=== PATIENT | male | born 1990 | race Caucasian/White ===

== ENCOUNTER 2022-11-16 08:13 | Outpatient (CLI) | payer BC, SELFPAY ==
[2022-11-16 12:27] LABS: Chloride* 108 mmol/L (96-114)
[2022-11-16 12:28] LABS: Potassium* 4.2 mmol/L (3.6-5.1); Sodium* 140 mmol/L (135-149)
[2022-11-16 12:30] LABS: Aspartate Amino Transferase* 40 U/L (12-35); Bilirubin Total* 0.9 mg/dL (0.1-1.5); Blood Urea Nitrogen* 16 mg/dL (5-24); Carbon Dioxide* 24 mmol/L (20-32); Cholesterol* 283 mg/dL (90-199); Creatinine* 0.8 mg/dL (0.5-1.5); Estimated Glomerular Filt Rate 121 ml/min
[2022-11-16 12:31] LABS: Alanine Aminotransferase* 62 U/L (4-50); Alkaline Phosphatase* 50 U/L (40-150); Calcium* 9.5 mg/dL (8.4-10.6); Glucose* 100 mg/dL (60-115); HDL Cholesterol* 44 mg/dL (>=40); LDL Cholesterol Calculated 208 mg/dL (<100); Triglycerides* 157 mg/dL (40-149)
== END 2022-11-16 08:14 | disposition home or self-care (01) ==
PROVIDERS: PCP Family Medicine; Visit Provider Family Medicine
DX: Z00.00 Encounter for general adult medical examination without abnormal findings (principal); Z13.1 Encounter for screening for diabetes mellitus; Z13.6 Encounter for screening for cardiovascular disorders
CPT/HCPCS: 80053; 80061

== ENCOUNTER 2023-02-27 07:49 | Outpatient (CLI) | payer BC, SELFPAY | END 2023-02-27 07:50 | disposition home or self-care (01) | LOC: NFLDREF 02-28 02:34 | PROVIDERS: PCP Family Medicine; Referring Provider Family Medicine; Visit Provider Family Medicine | DX: E78.5 Hyperlipidemia, unspecified (principal); R74.01 Elevation of levels of liver transaminase levels | CPT/HCPCS: 80053; 80061 ==

== ENCOUNTER 2023-11-20 08:38 | Outpatient (CLI) | payer BC, SELFPAY | END 2023-11-20 08:39 | disposition home or self-care (01) | LOC: NFLDREF 11-24 07:19 | PROVIDERS: PCP Family Medicine; Referring Provider Family Medicine; Visit Provider Family Medicine | DX: E78.5 Hyperlipidemia, unspecified (principal); R74.01 Elevation of levels of liver transaminase levels | CPT/HCPCS: 80053; 80061 ==

== ENCOUNTER 2025-07-11 12:12 | Emergency (ER) | payer BC, SELFPAY ==
[2025-07-11 12:36] VITALS: BP 147/91; PULSE 83; RESP 18; TEMP 36.3; O2SAT 94; BMI 44.1
--- NOTE | 2025-07-11 12:58 | ED_ITS ---
HPI - General Adult General Chief complaint: Laceration/Wound Stated complaint: Right Thumb Laceration Time Seen by Provider: 07/11/25 12:27 History of Present Illness HPI narrative: Patient has laceration in right thumb. 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 34-year-old man presenting to the emergency department following a laceration sustained to his right thumb. 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 Has managed to control the bleeding. No loss of function or sensation noted. Related Data Home Medications ?Medication ?Instructions ?Recorded ?Confirmed No Known Home Medications 11/16/2203/30 Allergies Allergy/AdvReac Type Severity Reaction Status Date / Time No Known Drug Allergies Allergy Verified 11/16/23 13:44 Review of Systems Status of ROS: Reports: 6 or more systems reviewed and unremarkable except as noted in History and below [facility] Social History What is your current living situation?: I presently have a place to live Problems where you live: no known problems In the past 12 months, utilities in danger of being shut off: no In past 12 months, lack of transportation kept you from medical appts, meetings, work, or getting things needed for daily living: no In the past 12 mos, have been you worried that your food would run out before you had money to buy more?: never true In the past 12 mos, the food you bought just didn't last and you didn't have money to buy more?: never true Smoking Status: Never smoker How often does anyone, including family, friends and others, physically hurt you : never How often does anyone, including family, friends and others, insult or talk down to you: never How often does anyone, including family, friends and others, threaten you with harm: never How often does anyone, including family, friends and others, scream or curse at you: never Exam Narrative: Exam Narrative: Pleasant. NAD. Wound has already been cleansed. Examination shows a 3/8th inch laceration horizontal on the dorsal mid proximal phalanx. Lightly gapping. Bleeds a little bit with manipulation. I do not appreciate any weakness to resisted extension. I do not appreciate that there is encroachment extensor tendons. Const: Vital Signs, click to edit/add: Vital Signs - 24 hr 07/11/25 12:36 Temperature 97.3 F L Pulse Rate [Pulse Oximeter] 83 Respiratory Rate 18 Blood Pressure [Ri ght Upper Arm] 147/91 H Pulse Oximetry 94 Oxygen Delivery Me thod Room Air Documenting provider has reviewed patient's vital signs: yes Course Vital Signs Vital signs: Initial Vital Signs Temperature 97.3 F L 07/11/25 12:36 Temperature Source Temporal Artery Scan 07/11/25 12:36 Pulse Rate 83 07/11/25 12:36 Respiratory Rate 18 07/11/25 12:36 Blood Pressure 147/91 H 07/11/25 12:36 Blood Pressure Mean 109 H 07/11/25 12:36 Pulse Oximetry 94 07/11/25 12:36 Oxygen Delivery Method Room Air 07/11/25 12:36 Vital Signs Temperature 97.3 F L 07/11/25 12:36 Pulse Rate 83 07/11/25 12:36 Respiratory Rate 18 07/11/25 12:36 Blood Pressure 147/91 H 07/11/25 12:36 Pulse Oximetry 94 07/11/25 12:36 Oxygen Delivery Method Room Air 07/11/25 12:36 Temperature 97.3 F L 07/11/25 12:36 Pulse Rate 83 07/11/25 12:36 Respiratory Rate 18 07/11/25 12:36 Blood Pressure 147/91 H 07/11/25 12:36 Pulse Oximetry 94 07/11/25 12:36 Oxygen Delivery Method Room Air 07/11/25 12:36 Medications Administered Medications: Discontinued Medications Generic Name Dose Route Start Last Admin Trade Name Yawq PRN Reason Stop Dose Admin Diphtheria/Tetanus/Acell Pertussis 0.5 ml 07/11/25 13:20 07/11/25 13:28 Tetanus/Diphth/Pertussis 0.5 Ml Syringe IM 07/11/25 13:21 0.5 ml .ONCE ONE Administration Medical Decision Making MDM Narrative Medical decision making narrative: Given his work it would be better to suture this. I suspect other methods will fail. This is not a crush injury and does not require imaging otherwise. I did return to inject with lidocaine with epinephrine. Cleansed further with Shur-Clens type solution. good anesthesia was achieved and closed with 5 0 Ethilon. Bleeding was controlled. Excellent wound approximation. Covered with antibiotic ointment and Band-Aid. Luis tolerated this very well in spite of his discomfort of needles. DTaP/Adacel updated See patient discharge plan for further discussion sutures out in 8 - 10 days. antibiotic ointment for 4 - 5 days and then to a dry dressing. ok to get wet but try not to soak while sutures are in. Watch for spreading redness after 2 days accompanied by heat, swelling, marked increase in pain, purulent drainage. Medical Records Medical records reviewed: Yes I reviewed the patient's medical records Discharge Plan Discharge Clinical Impression: Laceration of thumb Patient Disposition: Home, Self-Care Condition: Improved Additional Instructions: sutures out in 8 - 10 days. antibiotic ointment for 4 - 5 days and then to a dry dressing. ok to get wet but try not to soak while sutures are in. Watch for spreading redness after 2 days accompanied by heat, swelling, marked increase in pain, purulent drainage. Prescriptions: No Action No Known Home Medications Follow Up/Referrals: Provider,Not a Local [Primary Care Provider, Family Practice] Stand Alone Forms: [employer] Info Instructions
[2025-07-11] MEDS: TETANUS/DIPHTH/PERTUSSIS 0.5 ML SYRINGE IM (13:28)
== END 2025-07-11 13:33 | disposition home or self-care (01) ==
PROVIDERS: Emergency Provider Family Medicine
DX: S61.011A Laceration without foreign body of right thumb without damage to nail, initial encounter (principal); W26.0XXA Contact with knife, initial encounter; Z23 Encounter for immunization
CPT/HCPCS: 12001; 90471; 90715; 99283; 99284